=== PATIENT | female | born 1950 | race Caucasian/White ===

== ENCOUNTER 2016-07-16 21:48 | Emergency (ER) | payer OTHER ==
[~2016-07-16 21:48] MED LIST: AMLODIPINE BESY10 M1 PO; ATIVAN1 MG; CAR1 PO; GLU500 PO; LEVOCETIRIZINE D5 M1 PO; METFORMIN HCL500 MG PO; METOPROLOL SUCC50 M2 PO; NEURONTIN600 MG PO; PANTOPRAZOLE SO40 M1 PO; POTASSIUM CHLO10 ME2 PO; ZOC20 PO
[2016-07-17 00:06] VITALS: BP 130/74
== END 2016-07-17 00:06 | disposition home or self-care (01) ==
LOC: ED 21:48
DX: M79.671 Pain in right foot (principal); I10 Essential (primary) hypertension; E07.9 Disorder of thyroid, unspecified; G47.30 Sleep apnea, unspecified; M79.7 Fibromyalgia; Z86.79 Personal history of other diseases of the circulatory system; Z88.8 Allergy status to other drugs, medicaments and biological substances